=== PATIENT | female | born 1995 ===

== ENCOUNTER 2021-05-26 21:24 | Inpatient (IN) | payer OTHER, SELFPAY ==
[~2021-05-26] VITALS: Ht 157.5 cm; Wt 90.2 kg
[2021-05-26 21:46] VITALS: BP 155/101
[2021-05-26 22:02] VITALS: BP 163/94
[2021-05-26 22:16] VITALS: BP 158/102
[2021-05-26] MEDS ORDERED: FERR325T3 PO (22:27)
[2021-05-26] MEDS ORDERED: PRENTAB9 PO (22:27)
[2021-05-26 22:32] VITALS: BP 155/97
[2021-05-26] MEDS ORDERED: OXYTOCIN DRIP 30 UNITS in IV 1 EA IV SCH (22:55)
[2021-05-26] MEDS ORDERED: TRANEXAMIC ACID INJection 1,000 MG in NS 100 ML IV PRN (22:55)
[2021-05-26] MEDS ORDERED: LIDOCAINE 1% MDV 20ML VIAL INFIL PRN (22:55)
[2021-05-26] MEDS ORDERED: CARBOPROST TROMETHAMINE 250 MCG/ML AMP IM PRN (22:55)
[2021-05-26] MEDS ORDERED: OXYTOCIN DRIP 30 UNITS in IV 1 EA IV PRN (22:55)
[2021-05-26 23:10] LABS: HEMATOCRIT 35.7 % (36.0-47.0); HEMOGLOBIN 11.5 g/dl (12.0-15.5); MEAN CORPUSCULAR HEMOGLOBIN 26.5 pg (27.0-33.0); MEAN CORPUSCULAR HGB CONC 32.2 g/dl (32.0-36.5); MEAN CORPUSCULAR VOLUME 82.3 fl (80.0-96.0); PLATELET COUNT, AUTOMATED 314 10^3/uL (150-450); RED BLOOD COUNT 4.34 10^6/uL (4.00-5.40); WHITE BLOOD COUNT 9.8 10^3/uL (4.0-10.0)
[2021-05-26 23:16] VITALS: BP 137/91
[2021-05-26] MEDS: LR 1,000 ML IV SCH (23:30)
[2021-05-26 23:31] VITALS: BP 129/81
--- NOTE | 2021-05-26 23:45 | HPEPDOC ---
Obstetrical History & Physical General Date of Admission May 26, 2021 at 10:40 pm History of Present Illness 25yo at 37w5d by LMP c/w 9w4d US wit ISMAEL 18 May presents for LOF. States she was having intercourse and noted a gush of fluid with a small amount of green color to it, and presented to L&D for further evaluation. She also reports recent onset of contractions since arriving to L&D. She is otherwise without complaint denies bleeding or discharge, +GFM. Denies fevers/chills. Denies DOLAN, vision changes, RUQ or SOB. Chief Complaint: LOF, term Information Provided By: Patient Care Care: Good Care Dating Final EDC: Jun 11, 2021 Final EDC by: LMP, 1st trimester (US) LMP: Sep 04, 2020 Antepartum Course Diagnos(e)s 1. Varicella non-immune 2. Excessive weight gain in (nml GTT) 3. History of asthma (has not used inhaler this ) 4. Anemia, on supplementation 5. Hx LSIL pap Past Medical History Past Obstetrical History : Past Obstetrical History: Primgravida Date of Delivery: Nov 25, 2020 (SAB) FORGE HEATER History: Other (LSIL pap ) Past Medical History Medical History denies Surgical History: Other (ear surgery as a child (due to infection)) Family History Significant Family History: No pertinent family hx Social History Marital Status: Family situation: Spouse/partner home Psychosocial History: No pertinent psych hx * Smoker: non-smoker Alcohol: Denies Drugs: denies Imunizations Tdap status: current (April 14) Allergies Coded Allergies: No Known Allergies (Unverified , 05/26/21) Medications Scheduled No.137/Iron/Folic Acd ( Vitamin Tablet) 1 Each Tablet, 1 TAB PO DAILY Miscellaneous Medications Ferrous Sulfate (Ferrous Sulfate) 325 Mg Tablet.dr, 325 MG PO Physical Examination Physical Examination GENERAL: Alert and oriented times three. BREAST: . ABDOMEN: Gravid and non-tender to touch. FETUS: Is vertex (VTX) by sterile vaginal examination (SVE), fetus is vertex (VTX) by Eladia. HEART RATE: Regular rate and rhythm. LUNGS: Clear to auscultation (CTA). EXTREMITIES: No edema. No clonus. Deep tendon reflexes (DTRs) + . Vital Signs/I&O Vital Signs Date Time Temp Pulse Resp B/P (MAP) Pulse Ox O2 Delivery O2 Flow Rate FiO2 05/26/21 23:16 98.4 79 18 137/91 (106) 05/26/21 22:32 80 18 155/97 (116) 05/26/21 22:16 98 18 158/102 (120) 05/26/21 22:02 88 18 163/94 (117) 05/26/21 21:46 96 18 155/101 (119) 05/26/21 21:45 97.7 18 Laboratory Data 24H LABS Laboratory Tests 2 05/26/21 22:55: Nucleated Red Blood Cells % (auto) 0.0 CBC/BMP Laboratory Tests 05/26/21 22:55 Pertinent Laboratoy Data Blood Type: O+ RBC Antibody Screen: Negative HIV: Negative Hepatitis B: Negative Rapid Plasma Reagin: Nonreactive Rubella: Immune Varicella: Nonreactive Chlamydia/Gonorrhea: Negative Group B Streptococcus: Negative (May 15) Anatomy Ultrasound Placenta Location: Anterior Normal Anatomy: Yes Vaginal Examination Dilation: 2cm Effacement: 50% Station: -2 Cervical Consistency: Soft Cervical Position: Middle Presentation: Cephalic presentation (by eladia's and SVE) Assessment Heart Rate (FHR): 130 Variability: Moderate Accelerations: Positive Decelerations: None Tocometer Contractions: Yes (q6-8min) Multi-drug resistant Organism: No history of MDRO Assessment/Plan Assessment 25yo at 37w5d presents to labor and delivery for PROM. Pt also noted to have elevated BP on arrival with one severe range pressure --> mild range on repeat 1. Varicella non-immune 2. Excessive weight gain in (nml GTT) 3. History of asthma (has not used inhaler this ) 4. Anemia, on supplementation 5. Hx LSIL pap Plan Admit and orient. Foundry Molder and consent. Diet: clears (NPO in active labor) Group B Streptococcus (GBS) negative. Labs and intravenous (IV) per unit protocol. PreE labs ordered as well due to elevated BP on admission. Possible GHTN vs. PreE Counseled on Pitocin and induction/augmentation of labor (IOL). Pt having more frequent contractions since arrival, discussed with patient that goal is for contractions to occur every 2-3 min and will augment with pitocin as necessary due to increased risk of infection with PROM. IV maintenance fluids Anticipate normal spontaneous delivery C-S as appropriate. Pt counseled on risks/benefits Labor and Delivery Counseling Counseled on medications utilized in induction/augmentation of labor to include balloon, cytotec and pitocin. Given PROM with irregular contractions, recommend pitocin at this time. Reviewed indications/risks/benefits of interventions to include operative delivery and section. Discussed increased risk of infection, blood loss and injury to surrounding structures with these interventions. Pt consents to blood transfusion if indicated. Pt and both present during counseling and all questions answered. TRICE MITCHELL M.D. May 26, 2021 11:45 pm
[2021-05-27] VITALS (35 sets, daily range): BP systolic 115–164; BP diastolic 61–104
[2021-05-27 03:23] LABS: ALT/SGPT 12 U/L (12-78); BILIRUBIN,TOTAL 0.2 MG/DL (0.2-1.0); CREATININE FOR GFR 0.79 MG/DL (0.55-1.30); GLOMERULAR FILTRATION RATE > 60.0 (>60); LDH LACTATE DEHYDROGENASE 206 U/L (84-246); URIC ACID 6.1 MG/DL (2.6-6.0)
[2021-05-27] MEDS ORDERED: BUTORPHANOL 2 MG/ML INJ (J0595) IV ONE (03:45)
[2021-05-27] MEDS ORDERED: PROMETHAZINE INJ 25 MG/ML VIAL (J2550) IV ONE (03:45)
[2021-05-27] MEDS: LR 1,000 ML IV SCH (06:59)
--- NOTE | 2021-05-27 08:04 | IPNPDOC ---
Obstetrical Progress Note Date of Service May 27, 2021 Subjective 25yo at 37w5d admitted for PROM, currently augmented with pitocin. Meeting criteria for GHTN vs. preeclampsia. Pt requesting epidural for pain control. Denies DOLAN, vision changes, RUQ pain or dyspnea. Objective Vital Signs Date Time Temp Pulse Resp B/P (MAP) Pulse Ox O2 Delivery O2 Flow Rate FiO2 05/27/21 07:27 97.6 87 18 152/87 (108) 05/27/21 04:06 98 Room Air Assessment Heart Rate (FHR): 120 (mod variability, +accels, early decels) Tocometer Contractions: Yes (q2min on pitocin 4mU) Sterile Vaginal Examination Dilation: 5 cm (5/80/-1 on nurse exam this am around 0630) Assessment and Plan Status: Reassuring Group B Streptococcus: Negative Anticipate: Vaginal Delivery Additional Comments 25yo at 37w6d admitted for IOL for PROM. Last SVE by nurse around 0630 5-6/80/-1, currently on 4mU of pitocin. Currently cat 1 tracing with baseline 120's, and early decelerations. Requesting epidural for pain management. Receiving fluid bolus for epidural. Continue IOL with pitocin and anticipate vaginal delivery. GHTN vs. preeclampsia - pt with occasional severe range BP's with normal to mild range on repeat exam. Pt very uncomfortable, severe range likely due to pain. PreE labs within normal limits, UPC ratio pending, pt requesting epidural prior to catheterization for urine sample. TRICE MITCHELL M.D. May 27, 2021 08:04
[2021-05-27 08:29] LABS: HEMOGLOBIN 11.7 g/dl (12.0-15.5); MEAN CORPUSCULAR HEMOGLOBIN 26.5 pg (27.0-33.0); MEAN CORPUSCULAR HGB CONC 32.5 g/dl (32.0-36.5); MEAN CORPUSCULAR VOLUME 81.6 fl (80.0-96.0); PLATELET COUNT, AUTOMATED 295 10^3/uL (150-450); RED BLOOD COUNT 4.41 10^6/uL (4.00-5.40); WHITE BLOOD COUNT 16.9 10^3/uL (4.0-10.0)
[2021-05-27] MEDS ORDERED: FENTANYL 2MCG/ML ROPIVACAINE 0.2% IN 0.9% NACL 100ML IVBAG As Ordered ONE (08:50)
[2021-05-27] MEDS ORDERED: EPIDURAL/PCA KEYS XX PRN (08:55)
[2021-05-27] MEDS ORDERED: NALOXONE INJ 0.4MG/1ML VIAL (J2310 PER 1MG) IV PRN (08:55)
[2021-05-27] MEDS ORDERED: LACTATED RINGER'S 1000 ML IV PRN (08:55)
[2021-05-27] MEDS ORDERED: REFRIGERATOR IV KEYS XX PRN (08:55)
[2021-05-27] MEDS ORDERED: FENTANYL/ROPIVACAINE/NACL BAG 100 ML EPIDURAL SCH (08:55)
[2021-05-27] MEDS ORDERED: ePHEDrine SULFATE 25 MG/5 ML(5MG/ML) SYRINGE IV PRN (08:55)
[2021-05-27] MEDS ORDERED: EPIDURAL COMMENT XX SCH (08:55)
[2021-05-27] MEDS ORDERED: ONDANSETRON 4MG/2ML VIAL IV PRN (08:55)
[2021-05-27] MEDS ORDERED: diphenhydrAMINE 50MG/ML VIAL (J1200) IV PRN (08:55)
--- NOTE | 2021-05-27 10:31 | IPNPDOC ---
Text Note Date of Service The patient was seen on 05/27/21. NOTE Assuming care of Ms. Garner this AM. She's a 25 yo at 37+6 weeks gestation who was admitted late last night for an IOL for PPROM. She has had mildly elevated blood pressures, but no consistent severe range levels. She has been on pitocin and just recently received an epidural. She is comfortable, but endorses pelvic pressure. Cervix: 7-8/C/-1 per RN exam. FHR tracing - Cat I with moderate variability, +accels, no decels. Pearl is progressing well on pitocin. Continue to titrate to effect. All questions answered. Josr VSEliezer, I+O VSEliezer, I+O Laboratory Tests 05/26/21 22:55 05/27/21 08:18 Vital Signs Date Time Temp Pulse Resp B/P (MAP) Pulse Ox O2 Delivery O2 Flow Rate FiO2 05/27/21 09:52 88 18 139/76 (97) 05/27/21 09:42 97.1 05/27/21 04:06 98 Room Air MICHELLE FARMER DO May 27, 2021 10:31
[2021-05-27] MEDS ORDERED: ACETAMINOPHEN TAB 650MG DOSE (2X325MG) PO PRN (13:25)
[2021-05-27] MEDS ORDERED: DIBUCAINE 1% OINTMENT 30GM TOP PRN (13:25)
[2021-05-27] MEDS ORDERED: IBUPROFEN 600MG TAB PO PRN (13:25)
[2021-05-27] MEDS ORDERED: OXYTOCIN DRIP 30 UNITS in IV 1 EA IV SCH (13:25)
[2021-05-27] MEDS ORDERED: MEASLES,MUMPS,RUBELLA VACCINE INJ (MMR-II) (90707) SC SCH (13:25)
[2021-05-27] MEDS ORDERED: PROMETHAZINE 25 MG TAB PO PRN (13:25)
[2021-05-27] MEDS ORDERED: RHOGAM 300 MCG (1500 IU) INJ (J2790) IM SCH (13:25)
[2021-05-27] MEDS ORDERED: IBUPROFEN 800 MG TAB PO PRN (13:25)
[2021-05-27] MEDS ORDERED: ACETAMINOPHEN 500 MG TAB PO PRN (13:25)
--- NOTE | 2021-05-27 13:31 | DNPDOC ---
[facility] Delivery Note Delivery Note DATE OF DELIVERY: 27May2021 at ~1300 PREDELIVERY DIAGNOSIS: 37+5 weeks gestation, PROM, IOL with pitocin POST DELIVERY DIAGNOSIS: Delivered. PROCEDURE: Spontaneous vaginal delivery COMMERCIAL FISHING VESSEL OPERATOR: Dr. Ovalles ANESTHESIA: Neuraxial (epidural) ESTIMATED BLOOD LOSS: 200 FINDINGS: 6lb 14oz female infant, Score 9/9 DELIVERY SUMMARY: Pearl progressed steadily in labor while on pitocin into active stage. She received an epidural. This afternoon she developed an uncontrollable urge to push. Cervical exam was C/C/+2. The bed was broken down and she was prepped for delivery. With excellent pushing effort over about 15 minutes her baby delivered. Presentation was ALFREDITO with restitution to ROT. The left anterior shoulder delivered with gentle traction followed easily by the remainder of the body. The was dried and stimulated on the field and a bulb suction was used. The was placed on the maternal abdomen and cried vigorously. The three vessel umbilical cord was clamped and cut by the FOB after appropriate time delay and under my direction. Third stage was completed with gentle traction on on the cord and it was productive of an intact placenta. The uterus was firmed with massage and pitocin was administered IV bolus. Inspection of the cervix, vagina, labia, and perineum revealed a small left vagi nal sidewall laceration. This was repaired in the usual fashion with 3-0 vicryl suture. There was excellent cosmesis and hemostasis after the repair. The fundus was palpated again and was firm. Sponge, instrument, and needle counts were correct X2. Mother and infant stable when I left the room. DO DARIAN Harris CHRISTOPHER J. DO May 27, 2021 13:31
[2021-05-27] MEDS ORDERED: SLF 3 ML SYR IV PRN (14:45)
[2021-05-27 20:23] LABS: HEMATOCRIT 33.2 % (36.0-47.0); HEMOGLOBIN 10.8 g/dl (12.0-15.5); MEAN CORPUSCULAR HEMOGLOBIN 26.8 pg (27.0-33.0); MEAN CORPUSCULAR HGB CONC 32.5 g/dl (32.0-36.5); MEAN CORPUSCULAR VOLUME 82.4 fl (80.0-96.0); PLATELET COUNT, AUTOMATED 292 10^3/uL (150-450); RED BLOOD COUNT 4.03 10^6/uL (4.00-5.40); WHITE BLOOD COUNT 17.1 10^3/uL (4.0-10.0)
[2021-05-27] MEDS: SLF 3 ML SYR IV SCH (20:41)
[2021-05-27] MEDS: DOCUSATE SODIUM 100MG CAPSULE PO PRN (21:01)
[2021-05-27 21:22] LABS: ALBUMIN 2.4 GM/DL (3.2-5.2); ALT/SGPT 13 U/L (12-78); BILIRUBIN,TOTAL 0.5 MG/DL (0.2-1.0); BLOOD UREA NITROGEN 5 MG/DL (7-18); CALCIUM LEVEL 8.4 MG/DL (8.5-10.1); CARBON DIOXIDE LEVEL 23 MEQ/L (21-32); CHLORIDE LEVEL 106 MEQ/L (98-107); CREATININE FOR GFR 0.88 MG/DL (0.55-1.30); GLOMERULAR FILTRATION RATE > 60.0 (>60); GLUCOSE, FASTING 131 MG/DL (70-100); POTASSIUM SERUM 3.7 MEQ/L (3.5-5.1); SODIUM LEVEL 139 MEQ/L (136-145); TOTAL PROTEIN 6.2 GM/DL (6.4-8.2)
[2021-05-28] MEDS: SLF 3 ML SYR IV SCH ×2 (05:28→14:00)
[2021-05-28 05:42] VITALS: BP 127/92
[2021-05-28] MEDS: PRENATAL VITAMINS CHEWABLE TABLET PO SCH (08:06)
--- NOTE | 2021-05-28 08:06 | IPNPDOC ---
Progress Note Date of Service: May 28, 2021 Progress Note 25 yo G2 now P1 PPD#1 s/p uncomplicated yesterday morning after undergoing an IOL for PROM. Noted to have GHTN. No acute events overnight. Pearl reports feeling well this AM. She is ambulating, voiding, tolerating a regular diet. Lochia is minimal. Pain well controlled. Vitals - VSS, normal to mildly elevated BPs, afebrile, non tachycardic General - Sitting up in chair at bedside, pleasant and conversant, NAD Abdomen - Fundus firm at U-2. No fundal tenderness Extremities - No edema UO - appropriate Pearl is doing well and is making an appropriate recovery. BPs stable, though will continue to monitor. Anticipate DC home tomorrow if meeting all criteria. Josr VS, I&O, 24H, Eliezer Vital Signs/I&O Vital Signs Date Time Temp Pulse Resp B/P (MAP) Pulse Ox O2 Delivery O2 Flow Rate FiO2 05/28/21 05:42 96.6 82 16 127/92 (104) 05/27/21 18:00 98 Room Air I&O- Last 24 Hours up to 6 AM 05/28/21 06:00 Intake Total 4037 ml Output Total 2500 ml Balance 1537 ml Laboratory Data 24H LABS Laboratory Tests 2 05/27/21 08:18: Nucleated Red Blood Cells % (auto) 0.0 05/27/21 14:37: Serology Scanned Report Hepatitis B Testing 05/27/21 20:11: Nucleated Red Blood Cells % (auto) 0.0, Anion Gap 10, Glomerular Filtration Rate > 60.0, Calcium Level 8.4L, Total Bilirubin 0.5#, Aspartate Amino Transf (AST/SGOT) 28, Alanine Aminotransferase (ALT/SGPT) 13, Alkaline Phosphatase 124H, Total Protein 6.2L, Albumin 2.4L, Albumin/Globulin Ratio 0.6L CBC/BMP Laboratory Tests 05/27/21 08:18 05/27/21 20:11 MICHELLE FARMER DO May 28, 2021 08:06
[2021-05-28 17:55] VITALS: BP 119/83
[2021-05-28] MEDS: DOCUSATE SODIUM 100MG CAPSULE PO PRN (19:53)
[2021-05-28 19:57] VITALS: BP 119/83
[2021-05-29 06:08] VITALS: BP 136/85
--- NOTE | 2021-05-29 07:24 | OBDS ---
[facility] Obstetrical Discharge Sum. Obstetrical Discharge Summary Typesetting Machine Tender/Provider: TRICE MITCHELL M.D. Date: May 29, 2021 Labor Pt's labor course complicated by diagnosis of GHTN intrapartum. Preeclampsia labs within normal limits, pt did not require any antihypertensive treatment throughout her stay. BP's normal to mild range . Delivery DELIVERY SUMMARY: Pearl progressed steadily in labor while on pitocin into active stage. She received an epidural. This afternoon she developed an uncontrollable urge to push. Cervical exam was C/C/+2. The bed was broken down and she was prepped for delivery. With excellent pushing effort over about 15 minutes her baby delivered. Presentation was ALFREDITO with restitution to ROT. The left anterior shoulder delivered with gentle traction followed easily by the remainder of the body. The infant was dried and stimulated on the field and a bulb suction was used. The infant was placed on the maternal abdomen and cried vigorously. The three vessel umbilical cord was clamped and cut by the FOB after appropriate time delay and under my direction. Third stage was completed with gentle traction on on the cord and it was productive of an intact placenta. The uterus was firmed with massage and pitocin was administered IV bolus. I nspection of the cervix, vagina, labia, and perineum revealed a small left vaginal sidewall laceration. This was repaired in the usual fashion with 3-0 vicryl suture. There was excellent cosmesis and hemostasis after the repair. The fundus was palpated again and was firm. Sponge, instrument, and needle counts were correct X2. Mother and stable when I left the room. Pt course uncomplicated. Day of discharge exam: pt sitting comfortably with baby this AM. Denies any complaints this AM. Ambulating, voiding without difficulty and minimal lochia. without difficulty and planning on condoms for contraception. Vitals: Vital Signs Date Time Temp Pulse Resp B/P (MAP) Pulse Ox O2 Delivery O2 Flow Rate FiO2 05/29/21 06:08 98.0 69 18 136/85 (102) 05/28/21 19:57 97.4 79 17 119/83 100 Room Air 05/28/21 17:55 97.4 79 17 119/83 (95) 100 Room Air CV/Lungs: RRR, normal work of breathing Abdomen: U-2, firm Ext: mild edema, no pain or erythema Infant Sex: Female Anesthesia: Regional Anesthesia A/P, Post Course List any complications Admission diagnosis: Induction of labor at term for PROM. GHTN Discharge diagnosis: same as above Condition at Discharge: stable Discharge Instructions: Please walk in to [facility] in 1 week for BP check, and call to schedule 6wk visit. Activity: ambulate, no lifting >20lbs. Diet:Regular Medications: Tylenol, motrin prn pain Follow-up: 1 week BP check, 6wk PP visit (at [facility]) TRICE MITCHELL M.D. May 29, 2021 07:24
[2021-05-29] MEDS: PRENATAL VITAMINS CHEWABLE TABLET PO SCH (08:57)
[2021-05-29 18:00] VITALS: BP 133/83
== END 2021-05-29 18:40 | disposition home or self-care (01) | DRG 807 ==
LOC: M LDO 21:24 → M LDI 22:40 → M OBS 05-27 15:48
PROVIDERS: ADMIT Obstetrics & Gynecology; ATTEND Obstetrics & Gynecology
PROC: 10E0XZZ Delivery of Products of Conception, External Approach (ICD-10-PCS; principal; 2021-05-27)
PROC: 0KQM0ZZ Repair Perineum Muscle, Open Approach (ICD-10-PCS; 2021-05-27)
DX: O42.02 Full-term premature rupture of membranes, onset of labor within 24 hours of rupture (principal); Z37.0 Single live birth; Z3A.37 37 weeks gestation of pregnancy; O13.4 Gestational [pregnancy-induced] hypertension without significant proteinuria, complicating childbirth; O99.02 Anemia complicating childbirth; D64.9 Anemia, unspecified; O70.1 Second degree perineal laceration during delivery